=== PATIENT | female | born 2000 ===

== ENCOUNTER 2022-04-01 10:29 | Emergency (ER) | payer SELFPAY ==
[2022-04-01 10:30] VITALS: BP 118/78; PULSE 95; RESP 18; TEMP 36.9; O2SAT 97; BMI 20.3
== END 2022-04-01 15:48 | disposition left against medical advice (07) ==
PROVIDERS: Emergency Provider Emergency Medicine
DX: R10.30 Lower abdominal pain, unspecified (principal)
CPT/HCPCS: 99281